=== PATIENT | female | born 1975 | race Caucasian/White ===

== ENCOUNTER 2018-07-12 16:45 | Emergency (ER) | payer OTHER ==
[~2018-07-12] VITALS: Ht 154.9 cm; Wt 68.0 kg
[2018-07-12 17:00] VITALS: BP 135/72
--- NOTE | 2018-07-12 17:15 | NUR ---
PT BIB FAMILY TO THE ED WITH THE CHIEF C/O HEAD INJURY. PER PT, SHE FELT FELT DIZZY AND LIGHTHEADED AND FELL, HIT HER HEAD CEMENT THE DAY BEFORE YESTERDAY. SHE PASSED OUT FOR COUPLE OF MINS AFTER FALL. STARTED NAUSEA, VOMITING AND DOUBLE VISION SINCE YESTERDAY. PT REPORTS IMBALANCED WALKING SINCE YESTERDAY. MILD WEAKNESS NOTED ON RIGHT UPPER EXTREMITY. C/O NAUSEA, DIZZINESS AND BLURRY VISION OF RIGHT EYE AT THIS TIME. ECCHYMOSIS NOTED ON RIGHT ZANE-ORBITAL AREA. SWOLLEN RIGHT EYELIDS. HEMATOMA AND ECCHYMOSIS NOTED ON RIGHT UPPER HEAD. PT STATES PAIN OF 9/10 AT THIS TIME. VSS. ER AWARE.
[2018-07-12 18:27] LABS: APPEARANCE,URINE CLEAR (CLEAR); BILIRUBIN,URINE NEGATIVE (NEGATIVE); BLOOD, URINE 2+ (NEGATIVE); COLOR,URINE YELLOW (YELLOW); LEUKOCYTE ESTERASE ,URINE NEGATIVE (NEGATIVE); NITRITE, URINE POSITIVE (NEGATIVE); UGLUCOSE NEGATIVE (NEGATIVE)
[2018-07-12 18:37] LABS: WBC,URINE 0-5 /HPF (0-5)
[2018-07-12 18:43] LABS: BASOPHILS # (AUTO) 0.1 K/uL (0.00-0.22); BASOPHILS % (AUTO) 0.5 % (0.0-2.0); EOSINOPHILS # (AUTO) 0.2 K/uL (0-0.4); EOSINOPHILS % (AUTO) 1.9 % (0.0-4.0); HEMATOCRIT 35.3 % (36-48); HEMOGLOBIN 11.5 g/dL (12.0-16.0); LYMPHOCYTES # (AUTO) 2.3 K/uL (2.5-16.5); LYMPHOCYTES % (AUTO) 22.5 % (20.5-51.1); MEAN CORPUSCULAR HEMOGLOBIN 27 pg (27-31); MEAN CORPUSCULAR HGB CONC 33 g/dL (33-37); MEAN CORPUSCULAR VOLUME 83.9 fL (80-94); MONOCYTES # (AUTO) 0.8 K/uL (0.8-1.0); MONOCYTES % (AUTO) 7.4 % (1.7-9.3); NEUTROPHILS # (AUTO) 6.9 K/uL (1.8-7.7); NEUTROPHILS % (AUTO) 67.7 % (42.2-75.2); PLATELET COUNT (AUTO) 371 K/uL (140-450); RED BLOOD CELL COUNT(AUTO) 4.21 MIL/uL (4.20-5.40); RED CELL DISTRIBUTION WIDTH 15.4 % (11.6-13.7); WHITE BLOOD COUNT (AUTO) 10.2 K/uL (4.8-10.8)
--- NOTE | 2018-07-12 18:55 | NUR ---
PT VERBALIZED FEELING BETTER AT THIS TIME. RESTING IN BED COMFORTABLY. NO C/O PAIN AT THIS TIME. FAMILY AT THE BEDSIDE.
--- NOTE | 2018-07-12 19:10 | NUR ---
REPORT GIVEN TO SLIDE FASTENER REPAIRER RN FOR CONTINUITY OF CARE.
[2018-07-12 19:19] LABS: ANION GAP 13.5 (8-16); CARBON DIOXIDE 28.1 mmol/L (21-32); POTASSIUM 3.6 mmol/L (3.5-5.1)
[2018-07-12 19:20] LABS: ALBUMIN 3.2 g/dL (3.4-5.0); CREATININE 0.7 mg/dL (0.6-1.3); TOTAL BILIRUBIN 0.4 mg/dL (0.0-1.0)
--- NOTE | 2018-07-12 19:20 | NUR ---
PT SITTING UP IN BED, VSS. COMFORT MEASURES OFFERED. PT TOLERATED WELL. PT WAITING FOR CT.
--- NOTE | 2018-07-12 19:30 | NUR ---
SEIZURE PRECAUTIONS IN PLACE. PADS X 2 UP ON BED RAILS. PT TOLERATED WELL.
--- NOTE | 2018-07-12 19:38 | NUR ---
DELAY IN TROPONIN PER LAB, RUNNING THE SPECIMEN NOW PER LAB ER MADE AWARE.
--- NOTE | 2018-07-12 20:19 | NUR ---
PT BACK FROM CT
[2018-07-12 21:50] VITALS: BP 131/68
--- NOTE | 2018-07-12 21:50 | NUR ---
Patient discharged with v/s stable. Written and verbal after care instructions given and explained. Patient alert, oriented and verbalized understanding of instructions. Ambulatory with steady gait. All questions addressed prior to discharge. ID band removed. Patient advised to follow up with PMD. Rx of TOPAMAX WAS given. Patient educated on indication of medication including possible reaction and side effects. Opportunity to ask questions provided and answered.
== END 2018-07-12 21:50 | disposition home or self-care (01) ==
LOC: MED 16:45
DX: S00.83XA Contusion of other part of head, initial encounter (principal); R55 Syncope and collapse; G43.909 Migraine, unspecified, not intractable, without status migrainosus; W18.30XA Fall on same level, unspecified, initial encounter; Y93.89 Activity, other specified; Y92.89 Other specified places as the place of occurrence of the external cause; Y99.8 Other external cause status
CPT/HCPCS: 36415; 70470; 70491; 71045; 80053; 81001; 81025; 82150; 83690; 84484; 85025; 85610; 85730; 87086; 93005; 99284; Q9967